=== PATIENT | female | born 1995 | race Caucasian/White ===

== ENCOUNTER 2017-06-05 19:49 | Emergency (ER) | payer MEDICAID, OTHER ==
[~2017-06-05] VITALS: Ht 157.5 cm; Wt 57.7 kg
[~2017-06-05 19:49] MED LIST: WELL150T PO; ZOFR4TAB3 SL
[2017-06-05 19:54] VITALS: BP 116/72; PULSE 76; RESP 16; TEMP 97.9; O2SAT 100
--- NOTE | 2017-06-05 20:28 | PD ---
HPI Chief Complaint: Pain: Acute or Chronic Time Seen by Provider: 20:10 Travel History International Travel<30 days: No Contact w/Intl Traveler<30days: No Traveled to known affect area: No History of Present Illness HPI 21-year-old female presents to the emergency room for evaluation of nontraumatic neck and mid back pain that started earlier today. Patient states she woke up fine but throughout the day she started developing neck pain and it has since moved into her mid back. She took ibuprofen without any relief in symptoms. Reports severe pain worse with range of motion. She has associated nausea. She denies upper or lower extremity paresthesias, saddle anesthesia, decreased strength, fever, chills, weight loss, night sweats. Patient is an IV drug user and last injected Dilaudid into her right antecubital space a few times over the past 2 days. PFSH Past Medical History ADHD: No Bipolar Disorder: Yes Weight (Kg): 3 Anxiety: Yes Depression: Yes Cancer: No Cardiovascular Problems: No Diabetes: No Diminished Hearing: No Headaches: Yes (Pt reports dizziness and headaches when coming "off my high") Psychiatric: No Immunizations Current: Yes Migraines: No Seizures: No Thyroid Disease: No Ulcer: No ?: Unknown : 2 Para: 1 Past Surgical History Appendectomy: No Section: No Cholecystectomy: No Other Surgery: No Social History Alcohol Use: No Tobacco Use: Yes (1- 1 1/2PPD) Substance Use: No Allergies-Medications (Allergen,Severity, Reaction): Coded Allergies: Nortriptyline (Verified Allergy, Unknown, 06/05/17) Reported Meds & Prescriptions Reported Meds & Active Scripts Active Robaxin (Methocarbamol) 750 Mg Tab 750 Mg PO Q8HR Review of Systems Except as stated in HPI: all other systems reviewed are Neg Physical Exam Narrative GENERAL: Well-nourished, well-developed female in no acute distress. Afebrile. Ambulatory. SKIN: Focused skin assessment warm/dry. HEAD: Normocephalic. EYES: No scleral icterus. No injection or drainage. NECK: Supple, trachea midline. No JVD or lymphadenopathy. CARDIOVASCULAR: Regular rate and rhythm without murmurs, gallops, or rubs. RESPIRATORY: Breath sounds equal bilaterally. No accessory muscle use. BACK: No obvious deformity. No CVA tenderness. Strength 5/5 and equal in upper and lower extremities. Mild tenderness to palpation of the cervical spine and thoracic spine. Data Data Last Documented VS Vital Signs Date Time Temp Pulse Resp B/P Pulse Ox O2 Delivery O2 Flow Rate FiO2 06/05/17 23:51 78 18 118/78 99 06/05/17 19:54 97.9 Orders Prothrombin Time / Inr (Pt) (06/05/17 20:17) Act Partial Throm Time (Ptt) (06/05/17 20:17) Complete Blood Count With Diff (06/05/17 20:17) Comprehensive Metabolic Panel (06/05/17 20:17) Drug Screen, Random Urine (06/05/17 20:17) Iv Access Insert/Monitor (06/05/17 20:17) Sodium Chloride 0.9% Flush (Ns Flush) (06/05/17 20:30) Mri C Spine W&W/O Contrast (06/05/17 ) Mri T Spine W & W/O Contrast (06/05/17 ) Ed Urine Pregnancytest Poc (06/05/17 20:17) Gadodiamide Pf Inj (Omniscan Pf Inj) (06/05/17 22:28) Labs Laboratory Tests Test 06/05/17 06/05/17 20:25 20:45 White Blood Count 4.6 TH/MM3 Red Blood Count 4.57 MIL/MM3 Hemoglobin 12.1 GM/DL Hematocrit 36.9 % Mean Corpuscular Volume 80.8 FL Mean Corpuscular Hemoglobin 26.5 PG Mean Corpuscular Hemoglobin 32.8 % Concent Red Cell Distribution Width 14.2 % Platelet Count 190 TH/MM3 Mean Platelet Volume 9.4 FL Neutrophils (%) (Auto) 64.5 % Lymphocytes (%) (Auto) 24.5 % Monocytes (%) (Auto) 7.4 % Eosinophils (%) (Auto) 2.7 % Basophils (%) (Auto) 0.9 % Neutrophils # (Auto) 3.1 TH/MM3 Lymphocytes # (Auto) 1.1 TH/MM3 Monocytes # (Auto) 0.3 TH/MM3 Eosinophils # (Auto) 0.1 TH/MM3 Basophils # (Auto) 0.0 TH/MM3 CBC Comment DIFF FINAL Differential Comment Prothrombin Time 11.2 SEC Prothromb Time International 1.0 RATIO Ratio Activated Partial 29.8 SEC Thromboplast Time Sodium Level 137 MEQ/L Potassium Level 4.1 MEQ/L Chloride Level 104 MEQ/L Carbon Dioxide Level 28.8 MEQ/L Anion Gap 4 MEQ/L Blood Urea Nitrogen 11 MG/DL Creatinine 0.63 MG/DL Estimat Glomerular Filtration 118 ML/MIN Rate Random Glucose 114 MG/DL Calcium Level 8.6 MG/DL Total Bilirubin 0.6 MG/DL Aspartate Amino Transf 15 U/L (AST/SGOT) Alanine Aminotransferase 15 U/L (ALT/SGPT) Alkaline Phosphatase 94 U/L Total Protein 6.7 GM/DL Albumin 3.4 GM/DL Urine Opiates Screen POS Urine Barbiturates Screen NEG Urine Amphetamines Screen POS Urine Benzodiazepines Screen NEG Urine Cocaine Screen NEG Urine Cannabinoids Screen NEG MDM Medical Decision Making Medical Screen Exam Complete: Yes Emergency Medical Condition: Yes Medical Record Reviewed: Yes Differential Diagnosis Muscle spasm, spinal epidural abscess, contusion Narrative Course 21-year-old female presents to the emergency room for evaluation of neck pain and mid back pain. Denies trauma or injury. States she injected Dilaudid into her right antecubital space a few days. No systemic signs of infection. Vital signs stable. Patient is resting comfortably in bed. There is midline tenderness of the cervical and thoracic spine and pain with range of motion. No focal neurological deficits. CBC and CMP are unremarkable. Given sudden onset of nontraumatic back pain and recent history of IV drug use, MRI of the cervical and thoracic spines were ordered. Thoracic and Cervical spine MRIs are negative. Patient likely has muscle spasm. She'll be discharged with prescription for Robaxin and told to follow-up with the primary care physician or return to the emergency room for worsening symptoms. She understands and agrees to plan. Diagnosis Primary Impression: Muscle spasm Referrals: Primary Care Physician Patient Instructions: General Instructions, Muscle Spasm (ED) Additional Instructions: Rest and drink plenty of fluids. Take Robaxin as directed, as needed for pain. Take ibuprofen with food as directed, as needed for pain. Apply ice to the affected area for 20 minutes at a time, as needed for pain and swelling. Follow-up with a primary care physician. Return to the emergency room for worsening symptoms. Med/Other Pt SpecificInfo: Prescription(s) given Scripts Methocarbamol (Robaxin)750 Mg Scl426 Mg PO Q8HR #12 TAB Ref 0 Prov:Jose Stewart MD 06/05/17 Condition: Stable Yola Albright Jun 05, 2017 20:28
[2017-06-05] MEDS ORDERED: SODIUM CHLORIDE 0.9% FLUSH 10 ML FLUSH IVF PRN (20:30)
[2017-06-05 20:31] LABS: AUTOMATED NEUTROPHIL # 3.1 TH/MM3 (1.8-7.7); BASOPHIL % 0.9 % (0.0-2.0); EOSINOPHIL # 0.1 TH/MM3 (0-0.4); EOSINOPHIL % 2.7 % (0.0-4.0); HEMATOCRIT 36.9 % (35.0-46.0); HEMO FLAGS DIFF FINAL; LYMPH % 24.5 % (9.0-44.0); LYMPHOCYTE # 1.1 TH/MM3 (1.0-4.8); MEAN CELL VOLUME 80.8 FL (80.0-100.0); MEAN CORPUSCULAR HEMOGLOBIN 26.5 PG (27.0-34.0); MEAN CORPUSCULAR HGB CONC 32.8 % (32.0-36.0); MONO % 7.4 % (0.0-8.0); NEUT % 64.5 % (16.0-70.0); PLATELET COUNT 190 TH/MM3 (150-450); RED BLOOD COUNT 4.57 MIL/MM3 (4.00-5.30); RED CELL DISTRIBUTION WIDTH 14.2 % (11.6-17.2); WHITE BLOOD COUNT 4.6 TH/MM3 (4.0-11.0)
[2017-06-05 20:42] LABS: CHLORIDE 104 MEQ/L (98-107); POTASSIUM 4.1 MEQ/L (3.5-5.1); SODIUM (NA) 137 MEQ/L (136-145)
[2017-06-05 20:45] LABS: ANION GAP 4 MEQ/L (5-15); BICARBONATE 28.8 MEQ/L (21.0-32.0)
[2017-06-05 20:46] LABS: BLOOD UREA NITROGEN 11 MG/DL (7-18)
[2017-06-05 20:47] LABS: APTT (PATIENT) 29.8 SEC (24.3-30.1); PROTHROMBIN TIME - PATIENT 11.2 SEC (9.8-11.6)
[2017-06-05 20:48] LABS: ALT (GPT) 15 U/L (10-53)
[2017-06-05 20:49] LABS: AST (GOT) 15 U/L (15-37); GLOMERULAR FILTRATION RATE 118 ML/MIN (>89)
[2017-06-05 20:50] LABS: TOTAL BILIRUBIN ADULT 0.6 MG/DL (0.2-1.0)
[2017-06-05 20:51] LABS: ALKALINE PHOSPHATASE 94 U/L (45-117)
[2017-06-05] MEDS ORDERED: GADODIAMIDE PF 287 MG/ML 10 ML VIAL (for RAD MRI) IV ONE (22:28)
--- NOTE | 2017-06-05 22:46 | RADRPT ---
EXAM DATE/TIME: 06/05/2017 22:07 [facility] COMPARISON: No previous studies available for comparison. INDICATIONS : Abscess. Pain to base of head and neck to between shoulder blades. CONTRAST: 10 cc Omniscan (gadodiamide) IV MEDICAL HISTORY : None. SURGICAL HISTORY : None. ENCOUNTER: Initial ACUITY: 1 day PAIN SCORE: 3/10 LOCATION: [facility] TECHNIQUE: Multiplanar multisequence MRI of the thoracic spine was performed. FINDINGS: VERTEBRA: Normal vertebral body height. Homogeneous marrow signal. ALIGNMENT: Normal. CORD: Normal position and configuration. POST CONTRAST: No abnormal areas of contrast enhancement seen. T1-T2: Normal. T2-T3: The thecal sac has a normal diameter. No evidence of disc bulge or protrusion. T3-T4: The thecal sac has a normal diameter. No evidence of disc bulge or protrusion. T4-T5: The thecal sac has a normal diameter. No evidence of disc bulge or protrusion. T5-T6: The thecal sac has a normal diameter. No evidence of disc bulge or protrusion. T6-T7: The thecal sac has a normal diameter. No evidence of disc bulge or protrusion. T7-T8: The thecal sac has a normal diameter. No evidence of disc bulge or protrusion. T8-T9: The thecal sac has a normal diameter. No evidence of disc bulge or protrusion. T9-T10: The thecal sac has a normal diameter. No evidence of disc bulge or protrusion. T10-T11: The thecal sac has a normal diameter. No evidence of disc bulge or protrusion. T11-T12: The thecal sac has a normal diameter. No evidence of disc bulge or protrusion. T12-L1: The thecal sac has a normal diameter. No evidence of disc bulge or protrusion. CONCLUSION: Negative MRI of the thoracic spine with and without contrast. José Manuel Caraballo MD on June 05, 2017 at 22:43 Board Certified Radiologist. This report was verified electronically.
[2017-06-05] MEDS ORDERED: ROBA750T PO (22:53)
--- NOTE | 2017-06-05 23:34 | RADRPT ---
EXAM DATE/TIME: 06/05/2017 22:07 [facility] COMPARISON: No previous studies available for comparison. INDICATIONS : Abscess. Pain to base of head and neck to between shoulder blades. CONTRAST: 10 cc Omniscan (gadodiamide) IV MEDICAL HISTORY : None. SURGICAL HISTORY : None. ENCOUNTER: Initial ACUITY: 1 day PAIN SCORE: 3/10 LOCATION: [facility] TECHNIQUE: Multiplanar, multisequence MRI examination of the cervical spine was performed. FINDINGS: Sagittal images demonstrate normal vertebral body alignment and curvature. No focal areas of marrow r eplacement are identified. The craniocervical junction appears normal. The cord itself is normal in c aliber and signal intensity. Axial images were performed from C2-3 through C7-T1. Following the admin istration of contrast no abnormal enhancement is identified. C2-C3: No significant abnormalities identified. C3-C4: No significant abnormalities identified. C4-C5: No significant abnormalities identified. C5-C6: No significant abnormalities identified. C6-C7: No significant abnormalities identified. C7-T1: No significant abnormalities identified. CONCLUSION: 1. Negative MRI of the cervical spine Cory Madrid MD on June 05, 2017 at 23:29 Board Certified Radiologist. This report was verified electronically.
[2017-06-05 23:51] VITALS: BP 118/78
== END 2017-06-05 23:52 | disposition home or self-care (01) ==
LOC: PHEFT 19:49
DX: M62.838 Other muscle spasm (principal); M54.2 Cervicalgia; M54.5 Low back pain; F31.9 Bipolar disorder, unspecified; F17.210 Nicotine dependence, cigarettes, uncomplicated
CPT/HCPCS: 72156; 72157; 80053; 80307; 84703; 85025; 85610; 85730; 99285; A9579

== ENCOUNTER 2017-11-04 18:35 | Inpatient (IN) | payer OTHER ==
[~2017-11-04] VITALS: Ht 157.5 cm; Wt 56.9 kg
[~2017-11-04 18:35] MED LIST changes: +ROBA750T PO; -WELL150T PO; -ZOFR4TAB3 SL
[2017-11-04 18:51] VITALS: BP 119/64; PULSE 93; RESP 18; O2SAT 99
--- NOTE | 2017-11-04 19:36 | PD ---
HPI Chief Complaint: Psychiatric Symptoms Time Seen by Provider: 19:07 Travel History International Travel<30 days: No Contact w/Intl Traveler<30days: No Traveled to known affect area: No History of Present Illness HPI 21-year-old white female presents to emergency department under Luo act as a transfer from [facility]. The patient initially had gone to the hospital last week for a voluntary evaluation for detox. The patient was placed under Luo act. It was determined that the patient had active hepatitis B and C. The patient was treated and her transaminases had improved. The patient was also treated for a UTI on antibiotics. Now that she has been cleared she has been sent here for evaluation under her Luo act. The patient denies any suicidal homicidal ideation. She states that she had gone through detox and had been on Suboxone. The patient is unsure why she has been transferred here as opposed to being treated in [place]. The patient denies any nausea vomiting. No abdominal pain. No dysuria or frequency. No urgency. No fever chills. PFSH Past Medical History Narrative Medical Bipolar, hepatitis B, hepatitis C, IV drug abuse ADHD: No Bipolar Disorder: Yes Anxiety: Yes Depression: Yes Cancer: No Cardiovascular Problems: No Diabetes: No Diminished Hearing: No Headaches: Yes (Pt reports dizziness and headaches when coming "off my high") Psychiatric: No Immunizations Current: Yes Migraines: No Seizures: No Thyroid Disease: No Ulcer: No Tetanus Vaccination: Unknown Past Surgical History Surgical History: No Previous Surgery Appendectomy: No Section: No Cholecystectomy: No Other Surgery: No Social History Alcohol Use: No Tobacco Use: Yes (1- 1 1/2PPD) Substance Use: Yes Allergies-Medications (Allergen,Severity, Reaction): Coded Allergies: nortriptyline (Unverified Allergy, Unknown, 06/17/17) Reported Meds & Prescriptions Reported Meds & Active Scripts Active Robaxin (Methocarbamol) 750 Mg Tab 750 Mg PO Q8HR Review of Systems General / Constitutional: No: Fever Eyes: No: Visual changes HENT: No: Headaches Cardiovascular: No: Chest Pain or Discomfort Respiratory: No: Shortness of Breath Gastrointestinal: No: Abdominal Pain Genitourinary: No: Dysuria Musculoskeletal: No: Pain Skin: No Rash Neurologic: No: Weakness Psychiatric: Positive: Depression, Substance Abuse, No: Suicidal Ideations, Disorder of Thought, Mood Disorder, Homicidal Ideation Endocrine: No: Polydipsia Hematologic/Lymphatic: No: Easy Bruising Physical Exam Narrative GENERAL: Well-nourished, well-developed patient. SKIN: Warm and dry. No signs of any wound infection. HEAD: Normocephalic and atraumatic. EYES: No scleral icterus. No injection or drainage. ENT: No nasal drainage noted. Mucous membranes pink. Airway patent. NECK: Supple, trachea midline. Moves head freely without obvious discomfort. CARDIOVASCULAR: Regular rate and rhythm without murmurs, gallops, or rubs. RESPIRATORY: Breath sounds equal bilaterally. No accessory muscle use. GASTROINTESTINAL: Abdomen soft, non-tender, nondistended. EXTREMITIES: No cyanosis or edema. BACK: Nontender without obvious deformity. No CVA tenderness. NEURO: Patient is alert and oriented. no sensorimotor deficits. Nonfocal. Normal speech. PSYCH: No delusions. No auditory or visual hallucinations. Judgment good Data Data Last Documented VS Vital Signs Date Time Temp Pulse Resp B/P (MAP) Pulse Ox O2 Delivery O2 Flow Rate FiO2 11/04/17 18:51 93 18 119/64 (82) 99 Room Air Orders Orders Urinalysis - C+S If Indicated (11/04/17 19:29) Psych Screen (11/04/17 19:29) MDM Medical Decision Making Medical Screen Exam Complete: Yes Emergency Medical Condition: Yes Medical Record Reviewed: Yes Interpretation(s) I review the patient's laboratory testing from her inpatient treatment. Differential Diagnosis MDM: High Differential diagnoses: Schizophrenia, schizoaffective disorder, bipolar, anxiety, depression, adjustment reaction, mood disorder NOS, ODD, depressive disorder NOS, dementia, dementia with agitation, psychosis NOS, substance induced mood disorder, DMDD, Asperger syndrome, infection,electrolyte abnormality, malingering. Narrative Course Mental health screening discussed with the patient. Psychiatric screen ordered. The patient has been medically cleared earlier by [facility]. We will repeat a urine here to confirm resolution. The patient will be seen by the psychiatrist under her Luo act. This is medical clearance for psychiatric admission Diagnosis Primary Impression: Medical clearance for psychiatric admission Condition: Varinder Richter Nov 04, 2017 19:36
[2017-11-04 22:45] VITALS: BP 128/68; PULSE 89; RESP 18
[2017-11-04 23:00] LABS: BACTERIA, URINE RARE /hpf; BILIRUBIN, URINE NEG (NEG); BLOOD, URINE NEG (NEG); GLUCOSE,URINE NEG (NEG); KETONE, URINE NEG (NEG); NITRITE,URINE NEG (NEG); SQUAMOUS EPITHELIAL CELL URINE 6 /hpf (0-5); URINE COLOR LIGHT-YELLOW (YELLW/STRAW); URINE LEUKOCYTE ESTERASE MOD (NEG)
[2017-11-05 10:21] VITALS: BP 100/54; PULSE 82; RESP 18; O2SAT 98
[2017-11-05] MEDS ORDERED: diphenhydrAMINE HCL 50 MG/ML VIAL IM PRN ×2 (13:15)
[2017-11-05] MEDS ORDERED: hydrOXYzine HCL 50 MG TAB PO PRN (13:15)
[2017-11-05] MEDS ORDERED: diphenhydrAMINE HCL 50 MG CAP PO PRN ×2 (13:15)
[2017-11-05] MEDS ORDERED: ACETAMINOPHEN 325 MG TAB PO PRN (13:15)
[2017-11-05] MEDS ORDERED: MAGNESIUM HYDROXIDE SUSP 30 ML CUP PO PRN (13:15)
[2017-11-05] MEDS ORDERED: ALUMINUM/MAGNESIUM/SIMETH 30 ML CUP PO PRN (13:15)
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
[2017-11-05 14:30] VITALS: BP 107/64; PULSE 96; RESP 18; TEMP 97.6
[2017-11-06 05:36] VITALS: BP 100/52; PULSE 68; RESP 16; TEMP 97.6; O2SAT 98
[2017-11-06 10:13] LABS: AUTOMATED NEUTROPHIL # 3.1 TH/MM3 (1.8-7.7); BASOPHIL % 0.9 % (0.0-2.0); EOSINOPHIL # 0.1 TH/MM3 (0-0.4); EOSINOPHIL % 2.3 % (0.0-4.0); HEMOGLOBIN 13.7 GM/DL (11.6-15.3); LYMPH % 31.3 % (9.0-44.0); LYMPHOCYTE # 1.7 TH/MM3 (1.0-4.8); MEAN CELL VOLUME 84.3 FL (80.0-100.0); MEAN CORPUSCULAR HGB CONC 34.4 % (32.0-36.0); MEAN PLATELET VOLUME 9.7 FL (7.0-11.0); MONO % 7.7 % (0.0-8.0); MONOCYTE # 0.4 TH/MM3 (0-0.9); NEUT % 57.8 % (16.0-70.0); PLATELET COUNT 227 TH/MM3 (150-450); RED BLOOD COUNT 4.74 MIL/MM3 (4.00-5.30); RED CELL DISTRIBUTION WIDTH 13.6 % (11.6-17.2); WHITE BLOOD COUNT 5.3 TH/MM3 (4.0-11.0)
[2017-11-06 10:37] LABS: ALBUMIN 3.6 GM/DL (3.4-5.0); AST (GOT) 307 U/L (15-37); BICARBONATE 30.2 MEQ/L (21.0-32.0); BLOOD UREA NITROGEN 14 MG/DL (7-18); CALCIUM 9.4 MG/DL (8.5-10.1); CHLORIDE 99 MEQ/L (98-107); CREATININE 0.73 MG/DL (0.50-1.00); GLOMERULAR FILTRATION RATE 100 ML/MIN (>89); GLUCOSE,RANDOM 116 MG/DL (74-106); SODIUM (NA) 136 MEQ/L (136-145)
[2017-11-06 10:38] LABS: CHOLESTEROL 177 MG/DL (120-200); TRIGLYCERIDES 154 MG/DL (42-150)
[2017-11-06 11:06] LABS: ALKALINE PHOSPHATASE 170 U/L (45-117); ALT (GPT) 663 U/L (10-53); CHOLESTEROL/ HDL RATIO 4.26 RATIO; HDL CHOLESTEROL 41.5 MG/DL (40.0-60.0); LDL CHOLESTEROL 105 MG/DL (0-99); TOTAL BILIRUBIN ADULT 0.6 MG/DL (0.2-1.0); TOTAL PROTEIN 7.8 GM/DL (6.4-8.2)
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
[2017-11-06 15:52] LABS: HEMOGLOBIN A1C 5.2 % (4.3-6.0)
--- NOTE | 2017-11-06 22:36 | EKG ---
Date Performed: 11/06/2017 Time Performed: 11:03:48 PTAGE: 21 years EKG: Sinus rhythm NORMAL ECG NO PREVIOUS TRACING DOCTOR: Sharifa Fritz Interpretating Date/Time 11/06/2017 22:34:26
== END 2017-11-06 13:45 | disposition home or self-care (01) | DRG 882 ==
LOC: NEPJ 18:35 → NEDA 11-05 13:03 → H270 11-05 14:20
PROVIDERS: ADMIT Psychiatry & Neurology Psychiatry; ATTEND Psychiatry & Neurology Psychiatry
DX: F43.25 Adjustment disorder with mixed disturbance of emotions and conduct (principal); R45.851 Suicidal ideations; B19.10 Unspecified viral hepatitis B without hepatic coma; F11.10 Opioid abuse, uncomplicated; Z59.0 Homelessness; B19.20 Unspecified viral hepatitis C without hepatic coma; F31.9 Bipolar disorder, unspecified; Z91.410 Personal history of adult physical and sexual abuse; Z91.411 Personal history of adult psychological abuse
CPT/HCPCS: 80053; 80061; 81001; 82306; 82607; 83036; 84443; 85025; 93005; 99285